=== PATIENT | male | born 1945 | race Caucasian/White ===

== ENCOUNTER 2023-06-23 09:07 | Outpatient (CLI) | payer MEDICARE | END 2023-06-23 23:59 | disposition home or self-care (01) | LOC: RAD 09:07 | PROVIDERS: ATTEND Family Medicine | DX: N13.30 Unspecified hydronephrosis (principal); N18.4 Chronic kidney disease, stage 4 (severe) | CPT/HCPCS: 76770 ==

== ENCOUNTER 2023-07-05 15:27 | Emergency (ER) | payer MEDICARE ==
[~2023-07-05] VITALS: Ht 167.6 cm; Wt 71.4 kg
[2023-07-05 18:34] LABS: BILIRUBIN,URINE NEGATIVE (Neg); CLARITY,URINE SLIGHTLY CLOUDY (Clear); COLOR,URINE YELLOW (Yellow); GLUCOSE, URINE NEGATIVE (Neg); KETONES,URINE NEGATIVE (Neg); LEUKOCYTE ESTERASE ,URINE NEGATIVE (Neg); NITRITES, URINE NEGATIVE (Neg); OCCULT BLOOD,URINE SMALL (Neg); PH,URINE 5.5 (4.8-8.0); PROTEIN,URINE NEGATIVE (Neg); UROBILINOGEN,URINE 0.2 E.U/dL (0.2-1.0)
[2023-07-05 18:38] LABS: UA COLLECTION TYPE FOLEY CATH
[2023-07-05 18:44] LABS: BACTERIA,URINE 1+ /HPF (Neg); RBC,URINE 20-50 /HPF (0-2); SQUAMOUS EPITHELIAL CELL,UR FEW /LPF (FEW)
[2023-07-05 19:50] LABS: BASOPHILS # (AUTO) 0.1 X10'3 (0-0.2); BASOPHILS % (AUTO) 1.4 % (0-1); EOSINOPHILS # (AUTO) 0.2 X10'3 (0-0.9); EOSINOPHILS % (AUTO) 3.5 % (0-6); HEMATOCRIT 34.1 % (42.0-52.0); HEMOGLOBIN 11.8 g/dl (14.0-17.9); LYMPHOCYTES # (AUTO) 1.7 X10'3 (1.1-4.8); LYMPHOCYTES % (AUTO) 24.6 % (21-51); MEAN CORPUSCULAR HEMOGLOBIN 29.8 PG (27.0-31.0); MEAN CORPUSCULAR HGB CONC 34.7 g/dL (33.0-36.5); MEAN CORPUSCULAR VOLUME 85.9 FL (78-98); MEAN PLATELET VOLUME 7.6 FL (7.4-10.4); MONOCYTES # (AUTO) 0.5 X10'3 (0-0.9); MONOCYTES % (AUTO) 7.8 % (2-12); NEUTROPHILS # (AUTO) 4.2 X10'3 (1.8-7.7); NEUTROPHILS % (AUTO) 62.7 % (42-75); PLATELET COUNT 188 X10'3 (140-440); RED BLOOD COUNT 3.97 X10'6 (4.70-6.10); RED CELL DISTRIBUTION WIDTH 13.7 % (11.5-14.5); WHITE BLOOD COUNT 6.7 X10'3 (4.5-11.0)
[2023-07-05 19:57] LABS: ALANINE AMINOTRANSFERASE 20 U/L (12-78); ALBUMIN 3.9 G/DL (3.4-5.0); ALKALINE PHOSPHATASE 71 IU/L (46-116); ANION GAP 7 (8-16); ASPARTATE AMINO TRANSFERASE 11 U/L (10-37); BILIRUBIN,TOTAL 0.5 MG/DL (0.1-1.0); BLOOD UREA NITROGEN 53 MG/DL (7-18); BUN/CREATININE RATIO 11.4 (10.0-20.0); CALCIUM 8.8 MG/DL (8.5-10.1); CHLORIDE 105 MMOL/L (99-107); CREATININE 4.65 MG/DL (0.60-1.10); GLUCOSE 90 MG/DL (70-104); POTASSIUM 5.4 MMOL/L (3.5-5.1); SODIUM 141 MMOL/L (135-145); TOTAL CARBON DIOXIDE 28.6 MMOL/L (24-32); TOTAL PROTEIN 7.7 G/DL (6.4-8.2); eCRCL 12 ML/MIN; eGFR 12 ML/MIN
[2023-07-05] MEDS ORDERED: normal saline 1000ml 1,000 ML IV ONE (20:10)
[2023-07-05] MEDS ORDERED: cloNIDine 0.1 mg tablet PO ONE (20:50)
[2023-07-05 21:02] LABS: ALBUMIN 3.9 G/DL (3.4-5.0); ANION GAP 13 (8-16); BLOOD UREA NITROGEN 53 MG/DL (7-18); BUN/CREATININE RATIO 11.4 (10.0-20.0); CALCIUM 8.6 MG/DL (8.5-10.1); CHLORIDE 103 MMOL/L (99-107); CREATININE 4.65 MG/DL (0.60-1.10); GLUCOSE 87 MG/DL (70-104); MAGNESIUM 1.8 MG/DL (1.5-2.4); POTASSIUM 4.7 MMOL/L (3.5-5.1); SODIUM 141 MMOL/L (135-145); eCRCL 12 ML/MIN; eGFR 12 ML/MIN
[2023-07-05 22:06] VITALS: BP 165/80; PULSE 62; RESP 16; O2SAT 98
[2023-07-05] MEDS ORDERED: CEPH-585 PO (22:18)
[2023-07-05] MEDS ORDERED: cephalexin 250mg capsule PO ONE (22:20)
[2023-07-05 22:59] VITALS: TEMP 97.6
== END 2023-07-05 23:04 | disposition home or self-care (01) ==
LOC: ER 15:28
DX: R33.9 Retention of urine, unspecified (principal); N39.0 Urinary tract infection, site not specified; N13.9 Obstructive and reflux uropathy, unspecified
CPT/HCPCS: 36415; 51702; 80048; 80053; 81001; 83735; 85025; 87088; 96360; 99284; C1758; J7030; A4358